=== PATIENT | female | born 1940 | race African-American/Black ===

== ENCOUNTER 2020-07-17 11:02 | Outpatient (CLI) | payer MEDICARE, OTHER, SELFPAY ==
[2020-07-17 11:30] LABS: Hematocrit 32.7 % (37.0-47.0); Hemoglobin 11.3 g/dL (12.0-15.0); Mean Corpuscular HGB Conc 34.6 g/dl (32-36); Mean Corpuscular Volume 78.2 fl (80-100); Mean Platelet Volume 10.4 fl (7.4-10.4); Platelet Count Result 317 k/mm3 (150-375); Red Blood Count 4.18 M/mm3 (4.2-5.4); Red Cell Distribution Width 16.6 % (11.5-14.5); White Blood Count 6.2 K/mm3 (4.5-10.0)
[2020-07-17 11:38] LABS: Alanine Aminotransferase 13 U/L (4-35); Albumin Level 4.5 g/dL (3.5-5.1); Alkaline Phosphatase 74 U/L (38-126); Anion Gap 9 mmol/L (8-16); Aspartate Amino Transferase 27 U/L (14-36); Bilirubin,Total 0.9 mg/dL (0.2-1.3); Blood Urea Nitrogen 13 mg/dL (7-17); Calcium 9.5 mg/dL (8.4-10.2); Carbon Dioxide 26 mmol/L (22-30); Chloride 104 mmol/L (98-107); Cholesterol 258 mg/dL (0-200); Estimated Glomerular Filt Rate > 60; Glucose 116 mg/dL (65-105); HDL Direct 56 mg/dL; Potassium 3.8 mmol/L (3.4-5.0); Sodium 139 mmol/L (137-145); Triglycerides 83 mg/dL (<150)
[2020-07-17 11:49] LABS: LDL Cholesterol Direct 153 mg/dL
[2020-07-17 11:52] LABS: Hemoglobin A1C 8.4 % (<5.7)
[2020-07-17 12:50] LABS: Folic Acid > 20.0 ng/mL (2.76->20)
== END 2020-07-17 11:03 | disposition home or self-care (01) ==
PROVIDERS: PCP Internal Medicine; Visit Provider Physician Assistant
DX: R73.9 Hyperglycemia, unspecified (principal); R53.83 Other fatigue
CPT/HCPCS: 36415; 80053; 80061; 82607; 82746; 83036; 84443; 85027

== ENCOUNTER 2020-07-29 13:20 | Outpatient (RCR) | payer MEDICARE, SELFPAY ==
[2020-07-29 13:23] VITALS: BMI 22.3
[2020-07-29 13:25] VITALS: BMI 22.3
== END 2020-10-20 11:25 | disposition home or self-care (01) ==
LOC: ANHDMC 13:20
PROVIDERS: PCP Internal Medicine; Visit Provider Physician Assistant
DX: E11.9 Type 2 diabetes mellitus without complications (principal); Z71.3 Dietary counseling and surveillance
CPT/HCPCS: 97802